=== PATIENT | female | born 1965 | race Caucasian/White ===

== ENCOUNTER → 2016-07-11 | Outpatient (CLI) | payer BC ==
[~2016-07-11] MED LIST: DOXY50CA26 PO
--- NOTE | 2016-07-11 16:02 | MAMMOGRAPHY REPORT ---
BILATERAL DIGITAL SCREENING MAMMOGRAM TOMOSYNTHESIS WITH CAD: 07/11/2016 CLINICAL HISTORY: Routine screening. Patient has no complaints. TECHNIQUE: Breast tomosynthesis in addition to standard 2D mammography was performed. Current study was also evaluated with a Computer Aided Detection (CAD) system. COMPARISON: Comparison is made to exams dated: 07/06/2015 mammogram, 06/24/2013 mammogram, 06/29/2014 m ammogram, 06/11/2011 mammogram, 06/17/2012 mammogram, and 05/30/2010 mammogram - [facility] enter. BREAST COMPOSITION: The tissue of both breasts is extremely dense, which lowers the sensitivity of mammography. FINDINGS: There are 2 small clusters of calcifications seen within the left upper outer quadrant an teriorly which are increased compared to prior exams. While these could represent milk of calcium/f ibrocystic changes, spot magnification views are recommended for further evaluation. Additionally, there is a round newly visualized partially circumscribed and partially obscured 17 mm mass seen wit hin the left lateral breast on the cc tomosynthesis images, for which ultrasound and possible additi onal spot compression views are recommended. This likely represents a cyst. The remainder of both breasts are stable compared to prior exams, without suspicious masses, calcifi cations, or areas of architectural distortion noted. Other scattered bilateral benign-appearing patricia cifications are not significantly changed, many of which have demonstrated layering on prior exams c onsistent with milk of calcium. IMPRESSION: ACR BI-RADS CATEGORY 0: INCOMPLETE EVALUATION: NEED ADDITIONAL IMAGING EVALUATION Left breast calcifications and left breast mass, for which additional imaging evaluation is recommen ded. The patient will be called to schedule an appointment. Approximately 10% of breast cancers are not detected with mammography. A negative mammographic repor t should not delay biopsy if a clinically suggestive mass is present. Danielle Benitez M.D. /:07/11/2016 15:54:49 Ditching Machine Operator: Halie Bautista, [facility] letter sent: Addl Imaging 0 BI-RADS Code: ACR BI-RADS Category 0: Incomplete Evaluation: Need Additional Imaging Evaluation
== END | disposition home or self-care (01) ==
LOC: C.MAMM 09:29
PROVIDERS: ATTEND Obstetrics & Gynecology
DX: Z12.31 Encounter for screening mammogram for malignant neoplasm of breast (principal); R92.1 Mammographic calcification found on diagnostic imaging of breast; N63 Unspecified lump in breast

== ENCOUNTER → 2016-07-18 | Outpatient (CLI) | payer BC ==
--- NOTE | 2016-07-18 14:32 | MAMMOGRAPHY REPORT ---
UNILATERAL LEFT DIGITAL DIAGNOSTIC MAMMOGRAM AND TARGETED LEFT ULTRASOUND: 07/18/2016 CLINICAL HISTORY: 50-year-old woman called back from screening mammography for 2 increasing clusters of microcalcifications in the lateral left breast, and a 17 mm mass in the lateral left breast seen on the tomosynthesis images. No family history of breast cancer. TECHNIQUE: Spot magnification left CC and ML views were obtained. COMPARISON: Comparison is made to exams dated: 07/11/2016 mammogram, 07/06/2015 mammogram, 06/29/2014 m ammogram, and 06/24/2013 mammogram - [facility]. BREAST COMPOSITION: The tissue of the left breast is extremely dense, which lowers the sensitivity of mammography. FINDINGS: There are diffuse microcalcifications throughout the visualized left breast. 2 increasing ly prominent clusters of my calcifications in the lateral anterior breast measure less than 2 mm. O n the spot magnification MLO view, nearly all of the calcifications within these clusters demonstrat e layering and tea-cupping, suggesting benign milk of calcium/fibrocystic change. Many other microc alcifications throughout the left breast also demonstrate layering, confirming benignity. No suspic ious spiculated mass or focal area of architectural distortion is identified. Targeted ultrasound was performed in the lateral left breast evaluate the 17 mm mammographic mass. In the 3:00 axis, 2 cm from the nipple, there is a lobulated anechoic benign simple cyst with reports developer ior acoustic enhancement, measuring 14.2 x 8.1 x 17.1 mm. This correlates well with the mammographi c mass and is benign. IMPRESSION: ACR-BI-RADS CATEGORY 3: PROBABLY BENIGN, TARGETED ULTRASOUND ACR-BI-RADS CATEGORY 3: OR OBABLY BENIGN 1. The 17 mm mass in the lateral left breast seen on the tomosynthesis images correlates with a polly ign anechoic simple cyst on ultrasound, identified in the 3:00 left breast. 2. The increasingly prominent clusters of microcalcifications in the upper outer anterior left muriel st probably represent benign fibrocystic changes, given that many of the calcifications layer on the spot magnification ML view. However, given that not every calcification layers, a short interval f ollow-up diagnostic mammogram including spot magnification views is recommended to ensure stability in 6 months. 3. Overall, the mammographic and sonographic findings suggest benign fibrocystic changes. These results and recommendations were discussed with the patient at the time of the exam. She tent atively scheduled a follow-up appointment prior to leaving our department. Approximately 10% of breast cancers are not detected with mammography. A negative mammographic repor t should not delay biopsy if a clinically suggestive mass is present. Shawanda Hess M.D. ay/:07/18/2016 10:16:03 Cocoa Bean Cleaner: Gabriela FRANCO(Lucila)(Lucy), [facility] letter sent: Follow Up Recommended 3 BI-RADS Code: ACR-BI-RADS Category 3: Probably Benign Ultrasound BI-RADS: ACR-BI-RADS Category 3: P robably Benign
== END | disposition home or self-care (01) ==
LOC: C.MAMM 09:12
PROVIDERS: ATTEND Obstetrics & Gynecology
DX: N63 Unspecified lump in breast (principal); R92.0 Mammographic microcalcification found on diagnostic imaging of breast

== ENCOUNTER 2017-01-05 11:11 | Emergency (ER) | payer BC ==
[~2017-01-05] VITALS: Ht 171.5 cm; Wt 60.0 kg
[2017-01-05 11:15] VITALS: TEMP 36.3; Ht 171.5 cm; Wt 60.0 kg
--- NOTE | 2017-01-05 11:28 | EMERGENCY ROOM VISIT NOTE ---
ED Visit Note First contact with patient: 11:18 CHIEF COMPLAINT: Foot pain HISTORY OF PRESENT ILLNESS: This 51-year-old female patient presents to the emergency department ambulatory complaining of swelling and pain in the right foot at rest and worse with weight bearing. The patient was running and stepped off a curb and rolled her right foot and ankle. The patient rates the pain as sharp and 8/10. The patient has no relief of the pain. The patient is not able to walk. No numbness or weakness. No ankle pain. There are no lacerations of the foot. The patient is able to move all of their toes and their ankle without pain. Patient denies previous injury to this foot. REVIEW OF SYSTEMS: GENERAL: A 6 system review of systems was completed with positives and pertinent negatives in the HPI. ALLERGIES: NKDA MEDICATIONS: Patient denies PMH: Patient denies SOCIAL HISTORY: The patient lives locally. She does not smoke PHYSICAL EXAM: Vital Signs: Reviewed Nurse's notes, vital signs stable. GENERAL : This is a 51-year-old female, in no acute distress, but appears in pain, well- developed, well-nourished. MUSCULOSKELETAL: There is no visual deformity of the right foot. There is no erythema but moderate ecchymosis, edema and tenderness over the fifth metatarsal. There is no warmth. There is tenderness and swelling over the fifth metatarsal of the right foot. The range of motion of the foot is is not significantly limited secondary to pain. There is no tenderness over the plantar fascia. Dorsi flexion 5/5 and Plantar flexion 5/5. The skin is intact and there are no lacerations or puncture wounds. Dorsalis pedis pulse 2+. Capillary refill less than 2 seconds. EMERGENCY DEPARTMENT COURSE: I examined the patient. An X-ray of the right foot walking bootand instructed on the use of crutches. The patient was discharged home in good condition. I do recommend the patient not airway on the foot until seen by orthopedics given the nature of the fracture. I offered an Ortho-Glass for the walking boot. She prefers a walking boot and states that she will not bear weight on her foot. [~ rep ct add3]] RIGHT FOOT MIN 3 VIEWS ROUTINE HISTORY: 51 years-old Female right foot pain, injury Right acute right foot pain status post injury while running. Initial exam. COMPARISON: None available. TECHNIQUE: 3 views of the right foot. FINDINGS: There is an acute nondisplaced transverse fracture involving the metadiaphyseal junction of the proximal aspect fifth metatarsal approximately 1.7 cm distal to the proximal tuberosity. No definite distal extension is seen. Mild associated soft tissue swelling. Negative for opaque foreign body. No significant degenerative changes. IMPRESSION: Acute nondisplaced fracture involves the metadiaphyseal junction of the fifth metatarsal with mild associated soft tissue swelling. Note that these type of fractures have been reported to demonstrate high rates of non-union (Bills fracture). Current/Historical Medications Scheduled Doxycycline (Monohydrate) (Doxycycline), 50 MG PO DAILY Allergies Coded Allergies: No Known Allergies (Unverified , 01/05/17) Vital Signs Date Time Temp Pulse Resp B/P (MAP) Pulse Ox O2 Delivery O2 Flow Rate FiO2 01/05/17 12:37 61 16 142/89 99 01/05/17 11:15 36.3 62 16 157/98 96 Room Air Medications Administered Medications (Trade) Dose Ordered Sig/Magen Route Start Time Stop Time Status Last Admin Dose Admin Ibuprofen (Motrin Tab) 600 mg NOW STAT PO 01/05/17 12:09 01/05/17 12:10 DC 01/05/17 12:14 600 MG Departure Information Impression Primary Impression: Fracture of fifth metatarsal bone Dispostion Home / Self-Care Condition GOOD Referrals Jacky Delarosa M.D. (PCP) Josue Lee, DO Patient Instructions Fifth Metatarsal Fx, [facility] Additional Instructions Ice and elevation for 24-48 hrs. Ibuprofen, 600mg every 6 hours for the pain. Wear the walking boot until seen by orthopedics. Crutches to assist in ambulation. Contact orthopedics first thing tomorrow morning to schedule a follow up appointment. Return with worsening symptoms Problem Qualifiers Primary Impression: Fracture of fifth metatarsal bone Encounter type: initial encounter Fracture type: closed Fracture alignment : nondisplaced Laterality: right Qualified Codes: S92.354A - Nondisplaced fracture of fifth metatarsal bone, right foot, initial encounter for closed fracture
[2017-01-05] MEDS ORDERED: DOXY50CA26 PO (11:31)
[2017-01-05] MEDS ORDERED: IBUPROFEN 600 MG TAB PO STA (12:09)
--- NOTE | 2017-01-05 12:12 | DIAGNOSTIC IMAGING REPORT ---
RIGHT FOOT MIN 3 VIEWS ROUTINE HISTORY: 51 years-old Female right foot pain, injury Right acute right foot pain status post injury while running. Initial exam. COMPARISON: None available. TECHNIQUE: 3 views of the right foot. FINDINGS: There is an acute nondisplaced transverse fracture involving the metadiaphyseal junction of the proximal aspect fifth metatarsal approximately 1.7 cm distal to the proximal tuberosity. No definite distal extension is seen. Mild associated soft tissue swelling. Negative for opaque foreign body. No significant degenerative changes. IMPRESSION: Acute nondisplaced fracture involves the metadiaphyseal junction of the fifth metatarsal with mild associated soft tissue swelling. Note that these type of fractures have been reported to demonstrate high rates of non-union (Bills fracture). The above report was generated using voice recognition software. It may contain grammatical, syntax or spelling errors. Electronically signed by: Jose Carcamo M.D. 01/05/2017 12:10 PM Dictated Date/Time: 01/05/2017 12:07 PM
[2017-01-05 12:37] VITALS: BP 142/89; PULSE 61; O2SAT 99
== END 2017-01-05 12:39 | disposition home or self-care (01) ==
LOC: C.EDB 11:12 → C.EDD 12:39
DX: S92.354A Nondisplaced fracture of fifth metatarsal bone, right foot, initial encounter for closed fracture (principal); W10.1XXA Fall (on)(from) sidewalk curb, initial encounter

== ENCOUNTER → 2017-01-16 | Outpatient (CLI) | payer BC ==
--- NOTE | 2017-01-16 13:42 | MAMMOGRAPHY REPORT ---
UNILATERAL LEFT DIGITAL DIAGNOSTIC MAMMOGRAM TOMOSYNTHESIS WITH CAD: 01/16/2017 CLINICAL HISTORY: Six-month follow-up of left breast calcifications. TECHNIQUE: Breast tomosynthesis in addition to standard 2D mammography was performed. Current study was also evaluated with a Computer Aided Detection (CAD) system. Left CC and MLO 2-D and tomosynthes is images and spot magnification left CC and ML views were obtained. COMPARISON: Comparison is made to exams dated: 07/18/2016 ultrasound, 07/18/2016 mammogram, 07/11/2016 mammogram, 07/06/2015 mammogram, 06/29/2014 mammogram, and 06/24/2013 mammogram - [facility] enter. BREAST COMPOSITION: The tissue of the left breast is extremely dense, which lowers the sensitivity o f mammography. FINDINGS: Spot magnification views of the left breast again demonstrate diffusely scattered calcifica tions throughout the left superior breast, the majority of which demonstrate layering on the lateral view, consistent with benign milk of calcium. The 2 previously described small clusters of calcifica tions in the left superior anterior breast are decreased compared to the July 2016 exam; additionall y, the calcifications in the clusters demonstrated layering on the prior exam. Given the layering an d given the decrease, the calcifications are benign and consistent with milk of calcium. No new or s uspicious clusters of microcalcifications are noted on the additional views. The remainder of the le ft breast is stable compared to prior exams, without suspicious masses, calcifications, or areas of a rchitectural distortion noted. IMPRESSION: ACR BI-RADS CATEGORY 2: BENIGN The 2 small clusters of calcifications in the left superior anterior breast are decreased compared to the prior exam, and are benign and compatible with milk of calcium. There is no mammographic eviden ce of malignancy in the left breast. Return to annual mammogram screening schedule is recommended, du e July 2017. The patient has been verbally notified of the results. Approximately 10% of breast cancers are not detected with mammography. A negative mammographic report should not delay biopsy if a clinically suggestive mass is present. Danielle Benitez M.D. ah/:01/16/2017 08:29:36 Flour Broker: Halie FRANCO(R)(M), [facility] letter sent: Normal 1/2 BI-RADS Code: ACR BI-RADS Category 2: Benign
== END | disposition home or self-care (01) ==
LOC: C.MAMM 08:06
PROVIDERS: ATTEND Obstetrics & Gynecology
DX: R92.1 Mammographic calcification found on diagnostic imaging of breast (principal)

== ENCOUNTER → 2017-07-14 | Outpatient (CLI) | payer OTHER ==
--- NOTE | 2017-07-15 15:35 | MAMMOGRAPHY REPORT ---
BILATERAL DIGITAL SCREENING MAMMOGRAM TOMOSYNTHESIS WITH CAD: 07/14/2017 CLINICAL HISTORY: Routine screening. Patient has no complaints. TECHNIQUE: Breast tomosynthesis in addition to standard 2D mammography was performed. Current study was also evaluated with a Computer Aided Detection (CAD) system. COMPARISON: Comparison is made to exams dated: 01/16/2017 mammogram, 07/18/2016 mammogram, 07/11/2016 m ammogram, 07/06/2015 mammogram, 06/29/2014 mammogram, and 06/24/2013 mammogram - [facility]. BREAST COMPOSITION: The tissue of both breasts is extremely dense, which lowers the sensitivity of m ammography. FINDINGS: There are diffuse bilateral round and punctate microcalcifications and multiple bilateral c ircumscribed masses scattered in the breasts. No suspicious spiculated or irregular mass, architectu ral distortion or cluster of new, suspicious microcalcifications is seen. IMPRESSION: ACR BI-RADS CATEGORY 1: NEGATIVE There is no mammographic evidence of malignancy. A 1 year screening mammogram is recommended. The pa tient will receive written notification of the results. Approximately 10% of breast cancers are not detected with mammography. A negative mammographic report should not delay biopsy if a clinically suggestive mass is present. Shawanda Hess M.D. ay/:07/14/2017 16:09:00 Pulp Grinder: Carolynn FRANCO(Lucila)(Lucy)(BD), [facility] letter sent: Normal 1/2 BI-RADS Code: ACR BI-RADS Category 1: Negative
== END | disposition home or self-care (01) ==
LOC: C.MAMM 09:10
PROVIDERS: ATTEND Family Medicine
DX: Z12.31 Encounter for screening mammogram for malignant neoplasm of breast (principal)